=== PATIENT | male | born 1995 | race Two or more races ===

== ENCOUNTER 2025-11-28 15:47 | Outpatient (CLI) | payer BC ==
[2025-11-28 16:29] LABS: Chloride 104 mmol/L (98-107); Potassium 3.6 mmol/L (3.5-5.1); Sodium 142 mmol/L (136-145)
[2025-11-28 16:30] LABS: Anion Gap 7 (5-15); Calcium 9.8 mg/dL (8.7-10.4); Carbon Dioxide 31 mmol/L (20-31)
[2025-11-28 16:35] LABS: BUN/Creatinine Ratio 8.3 (10.0-20.0); Blood Urea Nitrogen 9 mg/dL (9-23); Glucose 97 mg/dL (74-106)
== END 2025-11-28 17:00 | disposition home or self-care (01) ==
LOC: LAB 15:47
PROVIDERS: ATTEND Nurse Practitioner Family
DX: H74.8X2 Other specified disorders of left middle ear and mastoid (principal)
CPT/HCPCS: 36415; 80048